=== PATIENT | male | born 1975 | race Two or more races ===

== ENCOUNTER 2024-07-27 05:50 | Day surgery (SDC) | payer MEDICAID, SELFPAY ==
[2024-07-26 07:03] VITALS: BMI 27.0
[2024-07-26 08:41] LABS: Basophils % (Auto) 0 % (0-2.5); Eosinophils # (Auto) 0.1 Thou/mm3 (0.0-0.5); Eosinophils % (Auto) 1 % (0-10); Hematocrit 44.9 % (41.0-53.0); Immature Granulocytes % (Auto) 0 % (0-0); Immature Granulocytes Auto 0.02 Thou/mm3 (0.00-0.00); Lymphocytes # (Auto) 2.4 Thou/mm3 (1.0-4.8); Lymphocytes % (Auto) 36 % (10-50); Mean Corpuscular HGB Conc 33.4 g/dl (31.0-37.0); Mean Corpuscular Hemoglobin 29.2 pg (25.0-35.0); Mean Corpuscular Volume 87 fL (80-100); Monocytes # (Auto) 0.4 Thou/mm3 (0.0-0.8); Monocytes % (Auto) 5 % (0-12); Neutrophils # (Auto) 3.8 Thou/mm3 (1.8-7.7); Neutrophils % (Auto) 57 % (37-80); Nucleated Red Blood Cell % 0 /100 WBC (0); Platelet Count 202 Thou/mm3 (140-440); RDW Standard Deviation 42.5 fL (35.1-43.9); Red Blood Count 5.14 Miln/mm3 (4.50-5.90); White Blood Count 6.7 Thou/mm3 (3.8-10.6)
[2024-07-26 09:00] LABS: Partial Thromboplastin Time 33.3 Seconds (22.0-36.0); Prothrombin Time 10.8 Seconds (9.0-12.2)
[2024-07-26 09:26] LABS: Alanine Aminotransferase 32 U/L (10-49); Albumin, Serum 4.9 gm/dL (3.5-5.0); Albumin/Globulin Ratio 2.1 (1.2-2.2); Alkaline Phosphatase 65 U/L (46-116); Anion Gap 5 (7-16); Aspartate Amino Transferase 28 U/L (0-34); BUN/Creatinine Ratio 12 Ratio (12-20); Bilirubin,Total 1.2 mg/dL (0.3-1.2); Blood Urea Nitrogen 13 mg/dL (9-23); Calcium 9.9 mg/dL (8.3-10.6); Calcium (Corrected) 9.9 mg/dL (8.5-10.1); Chloride 105 mMol/L (98-107); Creatinine (Component) 1.1 mg/dL (0.6-1.3); Estimated Creatinine Clearance 90.1 mL/min (>60); Globulin 2.3 gm/dL (2.3-3.5); Glucose 97 mg/dL (74-106); Osmolality,Calculated 277 (275-295); Potassium 4.2 mMol/L (3.4-5.1); Sodium 139 mMol/L (136-145); Total Protein 7.2 gm/dL (5.7-8.2); eGFR > 60 See Note
[2024-07-27] VITALS (8 sets, daily range): BP systolic 115–137; BP diastolic 64–82; PULSE 54–78; RESP 14–20; TEMP 36.4–36.6; O2SAT 96–100; BMI 57.9
[2024-07-27] MEDS: RINGERS LACTATED 500 ML 500 ML 20 ML IV (06:41)
--- NOTE | 2024-07-27 10:05 | SUR.PHASEI ---
1005 Patient arrived to recovery resting comfortably in [facility], on oxygen 10L via oxy mask with an oral airway in place, breathing unlabored, vital signs stable, dressing intact to left groin; sutures, adaptic, gauze, medipore tape, no bleeding noted, lung sounds clear upon auscultation, bilateral radial pulses present when palpated, report received from Neptali MCRAE and Dr. Moody
--- NOTE | 2024-07-27 10:23 | PD.SUROPNT ---
Date of Procedure 07/27/24 Pre Op Diagnosis Symptomatic left inguinal hernia Post Op Diagnosis Same with both direct and indirect component but mostly a direct hernia Procedure Repair of the left inguinal hernia Findings Patient was found to have an indirect component with affected tissue protruding along with the cord structures from the preperitoneal area. Patient also had a weakness in the transversalis fascia Procedure Description After the patient was given general anesthesia patient was placed in supine position. Lower abdomen was prepped with ChloraPrep solution and draped in a sterile manner. Then the [left] inguinal incision was made for about [7 cm] in length. External oblique was incised and the cord structures were encircled and(. The patient was found to have no indirect sac and it was obvious that the patient had a large direct inguinal hernia because of the bulging medial to the cord structures in the transversalis fascia over hasselbach triangle. However the patient had bulky cord structures and upon I found out that there is herniation of the preperitoneal fat along the cord structures. This was and suture-ligated at the internal ring with 2-0 chromic. The cord structures were encircled around a Hernandez drain. The floor of the inguinal canal was reconstructed as follows: I made an incision in the transversalis fascia which was thin and attenuated. The preperitoneal fat was entered and the used 3 4 x 4's to create a space to place the Ventralex ST mesh measuring [2.5 inch] in diameter. After the mesh was placed in the superior strap was attached to the internal oblique with a 2-0 Prolene. The inferior strap was attached to the Umang's ligament using 2-0 Prolene. The sponge count was made to confirm that all of them were removed before the mesh was placed in place. Then I approximated the transversalis fascia over the mesh using a 2-0 Prolene. At the end of the floor of the inguinal canal appeared to be strong and without any weakness. I did not find any need for an onlay mesh because the internal ring was not patulous. After checking for any bleeding point the external oblique was closed with a running 2-0 Vicryl. Subcutaneous tissues was closed with 3``0 plain and I injected half percent Marcaine with epinephrine for analgesia. The subcuticular approximation was performed with 4-0 Monocryl. Dressing was applied with Adaptic and 4 x 4 and the patient tolerated the procedure well and was returned to recovery room in stable condition. Anesthesia GETA Pathology / specimen None IVF Infused 500 Estimated Blood Loss 30 Surgeon Isabela Bowden MD Surgical Staff Operation Date: 07/27/24 08:00 Case Staff Anesthesiologist: Bryan Moody RN First Assistant: Ruth Blake
--- NOTE | 2024-07-27 11:20 | SUR.PHASEII ---
1120 Patient meets discharge criteria from recovery, awake and alert, breathing unlabored, vital signs stable, denies pain at rest, states I feel it when I move , dressing intact; no bleeding noted, patient drinking water; tolerating well, denies nausea, patient assisted with dressing into his clothing by staff, discharge instructions given to patient and patient sister with the assistance of the telephone commercial loan processor, patients sister signed discharge instructions. Patient given all his belongings prior to discharge, [id number] via wheelchair and left in a private vehicle.
== END 2024-07-27 11:20 | disposition home or self-care (01) ==
PROVIDERS: PCP Physician Assistant; Referring Provider Surgery; Visit Provider Surgery
PROC: (CPT 49505; principal; 2024-07-27 08:00)
DX: K40.90 Unilateral inguinal hernia, without obstruction or gangrene, not specified as recurrent (principal)
CPT/HCPCS: 49505; 36415; 80053; 85025; 85610; 85730; A4217; A4649; C1781; J0461; J1100; J1885; J2250; J2405; J2704; J3010; J3490; J7120; A9270